=== PATIENT | female | born 1980 | race Caucasian/White ===

== ENCOUNTER → 2023-09-13 15:36 | Outpatient (REF) | payer BC, SELFPAY | LOC: WDC 15:36 | PROVIDERS: ATTENDING PHYSICIAN Obstetrics & Gynecology Gynecology; FAMILY PHYSICIAN Physician Assistant Medical | DX: Z12.31 Encounter for screening mammogram for malignant neoplasm of breast (principal) | CPT/HCPCS: 77063; 77067 ==

== ENCOUNTER → 2024-03-03 09:05 | Outpatient (REF) | payer OTHER, SELFPAY | LOC: RAD 09:05 | PROVIDERS: ATTENDING PHYSICIAN Physician Assistant Medical | DX: M25.552 Pain in left hip (principal) | CPT/HCPCS: 73502 ==

== ENCOUNTER → 2024-07-18 10:28 | Outpatient (REF) | payer OTHER, SELFPAY | LOC: WDC 10:28 | PROVIDERS: ATTENDING PHYSICIAN Obstetrics & Gynecology Gynecology; FAMILY PHYSICIAN Physician Assistant Medical | DX: N63.21 Unspecified lump in the left breast, upper outer quadrant (principal) | CPT/HCPCS: 76642; 77062; 77066 ==

== ENCOUNTER 2025-02-05 16:14 | Emergency (ER) | payer OTHER, SELFPAY ==
[2025-02-05 16:40] VITALS: BP 118/73
[2025-02-05 17:15] LABS: Hematocrit 36.5 % (37.0-47.0); Hemoglobin 12.6 g/dL (12.0-16.0); Mean Corp Hgb Conc. 34.5 g/dL (33.0-37.0); Mean Corpuscular Volume 90.3 fL (81.0-99.0); Nucleated Red Blood Cells % 0 %; Platelet Count 207 10^3/uL (130-400); Red Cell Dist. Width 12.5 % (11.5-14.5)
[2025-02-05 17:32] LABS: ALT (SGPT) 14 U/L (0-35); AST (SGOT) 19 U/L (14-36); Albumin 4.4 g/dl (3.5-5.0); Alkaline Phosphatase 52 U/L (38-126); Blood Urea Nitrogen 17 mg/dl (7-17); Calcium 9.4 mg/dl (8.4-10.2); Carbon Dioxide 27 mmol/L (22-30); Chloride 104 mmol/L (98-107); Glucose 91 mg/dl (70-99); Potassium 4.0 mmol/L (3.5-5.1); Sodium 135 mmol/L (135-145); Total Protein 6.9 g/dl (6.3-8.2); eGFR > 60.00
[2025-02-05 17:39] LABS: Troponin I < 0.012 ng/ml
--- NOTE | 2025-02-05 20:41 | ED.GENMED ---
History of Present Illness
General
Chief Complaint: Chest Pain
Source: patient
Time Seen by Provider: 02/05/25 19:31
History of Present Illness
History of Present Illness:
44-year-old female with past medical history of hypothyroidism presents to the emergency department for evaluation of an intermittent dull aching sensation in the center of her chest that has been ongoing since yesterday, saw her primary care
provider today who referred her to the ER for further workup. Patient states she had similar a few years ago but that the symptoms resolved. She states today symptoms do not seem to be exacerbated or alleviated by anything. She did not take any
medications prior to arrival. There does not seem to be any exertional component as she does note exercising frequently but not having any issues or pain while exercising. Both social and family history are noncontributory. Patient denies any
fevers or recent illnesses, recent travel or any other risk factors for pulmonary embolism. Patient does note that she believes she could be entering a perimenopausal state and was wondering if this might be contributing to her symptoms.
Past History
Past History
ED Past Medical History: None
ED Past Surgical History: and Tonsilectomy
Social History
Tobacco: Non-smoker
Alcohol: Occasional
Drug: None
Personal:
Living: with family
Review of Systems
Review of Systems
All Other Systems: ROS reviewed and negative except as documented in HPI and ROS
Phy Exam
Physical Exam
Physical Exam:
GENERAL: Alert , in no apparent distress
HEAD: Normocephalic atraumatic
EYE: clear conjunctiva
NECK: Supple
ENT: o/p clr, mmm.
CARDIAC: Regular rate and rhythm .
LUNGS: Clear breath sounds bilaterally, no acute respiratory distress, no wheezes/rales/rhonchi
ABDOMEN: Soft, without focal tenderness, no r/g, no cvat
NEUROLOGICAL: Alert and oriented
SKIN: Warm and dry, skin intact.
MUSCULOSKELETAL: No edema, well perfused.
PSYCH: Normal and appropriate interaction.
Scores
Heart Failure Risk
Heart Failure Risk Score: Not Applicable
Heart Score for Chest Pain Patients
STEMI patient?: No
History: Slightly or Non-Suspicious
ECG: Normal
Age: </= 45 years
Risk Factors: No Risk Factors
Troponin: </= Normal Limit
Heart Score for Chest Pain Patients: 0
Heart Score Risk: 2.5% MACE over next 6 weeks
Withdrawal Assessment of Alcohol
Withdrawal Assessment Completed?: Not applicable
Course
Orders/Labs/Results
Orders:
Orders
02/05/25 16:56
Complete Blood Count/With Diff Urgent
Comprehensive Metabolic Panel Urgent
Troponin I Urgent
02/05/25 18:57
CR Chest - 2 Views Urgent
Comment:
Reason For Exam: cp
02/05/25 19:31
Electrocardiogram (*1) Urgent
Reason for Study: Chest Pain
EKG- Treatment ONCE
Abnormal Lab Results
02/05/25
16:56
WBC 4.6 L 10^3/uL
(4.8-10.8)
RBC 4.04 L 10^6/uL
(4.20-5.40)
Hct 36.5 L %
(37.0-47.0)
MCH 31.2 H pg
(27.0-31.0)
MPV 11.6 H fL
(7.4-10.4)
02/05/25 16:56
02/05/25 16:56
Vital Signs
Initial and Last Documented VS:
Initial Vital Signs
Temp Pulse Resp BP Pulse Ox
98.2 F 60 16 118/73 98
02/05/25 16:40 02/05/25 16:40 02/05/25 16:40 02/05/25 16:40 02/05/25 16:40
Last Documented Vital Signs
Temp Pulse Resp BP Pulse Ox
98.2 F 60 16 118/73 98
02/05/25 16:40 02/05/25 16:40 02/05/25 16:40 02/05/25 16:40 02/05/25 20:41
MDM/Problems Addressed
Differential Diagnosis Includes:
ACS
PE
Dissection
Pericarditis/Myocarditis
GERD/Gastritis
PUD
Muscular etiology
MDM/Problems Addressed:
44-year-old female presenting to the ER for evaluation at the request of primary care provider for chest discomfort that has been intermittent since yesterday. Symptoms do not seem to be anginal in nature as she notes that even while exercising the
symptoms did not seem to be exacerbated nor have any anginal equivalent symptoms. Workup is initiated on arrival, negative troponin, chemistry unremarkable. EKG sinus bradycardia with a sinus arrhythmia and chest x-ray without any acute
pathologies. Given the symptoms been ongoing for 24 hours and she has a negative troponin I did offer the patient a repeat troponin however she ultimately preferred to be discharged home. Given she has no risk factors and is a low risk chest pain
patient will refer to the chest pain hotline. Discussed return precautions to the ER.
*Pulse Oximetry
SaO2: 98
Oxygen Mode of Delivery: Room air
Patient hypoxic: no
*EKG
Heart Rate: 49
Rate: bradycardiac
Rhythm: sinus arrhythmia
[place]: normal axis
Ischemia: no ischemia
*Critical Care Note
Total Time (30-74mins, 75-104mins- exclusive of procedures): Not Applicable
ED Attending Note
-
Portions of this chart may have been created with voice recognition software.� Occasional wrong word or��sound alike� substitutions may have occurred due to the inherent limitations of voice recognition software.
Discharge Plan
Departure
Patient Disposition: Home (Routine Discharge)
Date of Disposition: 02/05/25
Time of Disposition: 20:41
Patient with high blood pressure during this ER visit?: No
Discharge Problem:
Chest pain
Instructions: Chest Pain CBC Follow Up
Prescriptions:
No Action
Tablet
1 tab PO DAILY
Synthroid
0.75 mcg PO DAILY
oxycodone-acetaminophen 5 MG/325 MG tablet
1 tab PO Q4HPRN PRN (Reason: moderate pain) Qty: 12 0RF
ferrous sulfate [FeroSul] 325 MG tablet
325 mg PO BID Qty: 60 0RF
ibuprofen 600 MG tablet
600 mg PO Q4HPRN PRN (Reason: cramps) 0RF
ondansetron 4 mg tablet,disintegrating
4 mg PO TIDPRN PRN (Reason: nausea/vomiting) Qty: 20 0RF
Referrals:
Aida Dos Santos PA-C [Family Provider, Family Practice]
Interventions
Interventions:
*General Assessment Last Done: 02/05/25 16:40
*Neglect/Abuse Screening Last Done: 02/05/25 16:40
*ED COVID-19 Vaccine History Last Done: 02/05/25 16:40
*ED Influenza Vaccine History Last Done: 02/05/25 16:40
*Risk Screen - Suicide (C-SSRS) Last Done: 02/05/25 16:40
*Nursing Disposition Last Done: 02/05/25 20:48
ED- Cardiac Assessment Last Done: 02/05/25 19:31
Discharge Date and Time
Discharge Date/Time: 02/05/25 20:48
Print Language: UPPER SORBIAN
== END 2025-02-05 20:48 | disposition home or self-care (01) ==
LOC: EMR 16:14
PROVIDERS: Emergency Medicine; EMERGENCY PHYSICIAN Student in an Organized Health Care Education/Training Program; FAMILY PHYSICIAN Physician Assistant Medical
DX: R07.89 Other chest pain (principal); E03.9 Hypothyroidism, unspecified; R00.1 Bradycardia, unspecified
CPT/HCPCS: 99285; 71046; 80053; 84484; 85025; 93005